=== PATIENT | female | born 1955 | race Caucasian/White ===

== ENCOUNTER 2016-02-11 16:52 | Emergency (ER) | payer OTHER ==
[2016-02-11] MEDS ORDERED: SODIUM CHLORIDE 0.9% 1,000 ML ONE (20:34)
[2016-02-11] MEDS ORDERED: PANTOPRAZOLE 40 MG VIAL IV ONE (22:02)
== END 2016-02-11 22:24 | disposition home or self-care (01) ==
LOC: ER 16:52
CPT/HCPCS: 96374